=== PATIENT | male | born 2000 | race Two or more races ===

== ENCOUNTER 2023-09-27 17:23 | Emergency (ER) | payer OTHER ==
[2023-09-27 17:33] VITALS: BP 176/89; PULSE 100; RESP 18; TEMP 97.9; BMI 36.8
[2023-09-27] MEDS ORDERED: ERYTHROMYCIN 0.5% OPHTHALMIC OINTMENT 3.5 GM TUBE ONE (17:47)
[2023-09-27] MEDS ORDERED: DIPHTH,PERTUSS(ACELL),TET 0.5 ML DISP.SYRIN IM ONE (18:08)
[2023-09-27] MEDS: DIPHTH,PERTUSS(ACELL),TET 0.5 ML DISP.SYRIN IM ONE (18:13)
[2023-09-28] MEDS ORDERED: ERYTHROMYCIN 0.5% OPHTHALMIC OINTMENT 3.5 GM TUBE OS ONE (17:46)
== END 2023-09-27 18:14 | disposition home or self-care (01) ==
LOC: JERFT 17:23
DX: T15.92XA Foreign body on external eye, part unspecified, left eye, initial encounter (principal); Z23 Encounter for immunization
CPT/HCPCS: 90715; 99283-25

== ENCOUNTER 2024-05-15 13:48 | Emergency (ER) | payer OTHER ==
[2024-05-15 14:10] VITALS: BP 144/88; PULSE 98; RESP 18; TEMP 98.8; BMI 37.5
[2024-05-15] MEDS ORDERED: FLUORESCEIN NA 1 EA STRIP OS STA (14:57)
[2024-05-15] MEDS ORDERED: TETRACAINE 0.5% OPHTH SOLN 2 ML BOTTLE OS STA (14:57)
[2024-05-15] MEDS ORDERED: FLUORESCEIN NA 1 EA STRIP ONE (14:57)
[2024-05-15] MEDS ORDERED: TETRACAINE 0.5% OPHTH SOLN 2 ML BOTTLE ONE (14:58)
== END 2024-05-15 15:42 | disposition home or self-care (01) ==
LOC: JERFT 13:48
DX: S05.02XA Injury of conjunctiva and corneal abrasion without foreign body, left eye, initial encounter (principal); W22.8XXA Striking against or struck by other objects, initial encounter; Y99.0 Civilian activity done for income or pay
CPT/HCPCS: 99283-25